=== PATIENT | female | born 1955 | race Caucasian/White ===

== ENCOUNTER 2025-04-25 12:23 | Emergency (ER) | payer MEDICARE ==
[~2025-04-25] VITALS: Ht 157.5 cm; Wt 111.0 kg
[2025-04-25] MEDS ORDERED: OMEP10CASR PO (12:54)
[2025-04-25] MEDS ORDERED: LEVO125T4 PO (12:54)
[2025-04-25] MEDS ORDERED: IBUP200C33 PO (12:54)
[2025-04-25] MEDS ORDERED: MODU5TA PO (12:54)
[2025-04-25] MEDS ORDERED: CAFF200T6 PO (12:54)
[2025-04-25] MEDS ORDERED: vitamin d PO (12:54)
[2025-04-25] MEDS ORDERED: VITA100065 PO (12:54)
[2025-04-25] MEDS ORDERED: B-12100010 PO (12:54)
[2025-04-25] MEDS ORDERED: ACET-897 PO (12:54)
[2025-04-25] MEDS ORDERED: METF-839 PO (12:54)
[2025-04-25] MEDS ORDERED: LOSA25TA13 PO (12:54)
[2025-04-25 13:13] LABS: PLATELET COUNT, AUTOMATED 285 10^3/uL (150-450)
[2025-04-25] MEDS: KETOROLAC 30 MG/ML 1 ML VIAL IV ONE (13:44)
[2025-04-25 13:45] LABS: CALCIUM LEVEL 8.4 MG/DL (8.3-10.6); CARBON DIOXIDE LEVEL 28 MMOL/L (20-31); CHLORIDE LEVEL 99 MMOL/L (98-107); CREATININE FOR GFR 0.59 MG/DL (0.55-1.30); GLOMERULAR FILTRATION RATE > 90.0 (>39); POTASSIUM SERUM 3.9 MMOL/L (3.5-5.1); SODIUM LEVEL 136 MMOL/L (136-145)
[2025-04-25] MEDS ORDERED: PERC5TAB12 PO (15:04)
[2025-04-25] MEDS ORDERED: COLA100C5 PO (15:06)
[2025-04-25 15:40] VITALS: BP 118/82; TEMP 97.6; O2SAT 98
== END 2025-04-25 15:41 | disposition home or self-care (01) ==
LOC: M ED 12:23
DX: S20.212A Contusion of left front wall of thorax, initial encounter (principal); S80.02XA Contusion of left knee, initial encounter; S00.83XA Contusion of other part of head, initial encounter; W19.XXXA Unspecified fall, initial encounter; Y92.9 Unspecified place or not applicable; Y93.9 Activity, unspecified; Y99.9 Unspecified external cause status; E11.9 Type 2 diabetes mellitus without complications; I10 Essential (primary) hypertension
CPT/HCPCS: 71101; 73564; 80048; 84484; 85027; 93005; 93971; 96374; 99284; J1885